=== PATIENT | male | born 1965 | race Caucasian/White ===

== ENCOUNTER 2017-10-01 07:46 | Day surgery (SDC) | payer OTHER ==
[~2017-10-01] VITALS: Ht 175.3 cm; Wt 99.3 kg
[~2017-10-01 07:46] MED LIST: ATOR1TAB21 PO; DOXE10CA PO; FISH100049 PO; LOSA100T5 PO; VITA100067 PO
[2017-10-01] MEDS ORDERED: NS 1,000 ML IV ONE (08:15)
[2017-10-01] MEDS ORDERED: LIDOCAINE 2% INJ 100 MG/5 ML SDV (FOR ANES.) As Ordered ONE (08:54)
[2017-10-01] MEDS ORDERED: PROPOFOL 200 MG/20 ML VIAL As Ordered ONE ×2 (08:54→09:09)
--- NOTE | 2017-10-01 09:31 | ROOR ---
Patient Name: Aleksandr Mcclain Procedure Date: 10/01/2017 8:50 AM Date of : 1965 Age: 52 Room: [facility] Gender: Male Note Status: Finalized Procedure: Colonoscopy Indications: Screening for colorectal malignant neoplasm Providers: Jimmy Medina MD Referring MD: CATE PADILLA MD Requesting Provider: Medicines: Monitored Anesthesia Care Complications: No immediate complications. Procedure: Pre-Anesthesia Assessment: - Prior to the procedure, a History and Physical was performed, and patient medications and allergies were reviewed. The patient is competent. The risks and benefits of the procedure and the sedation options and risks were discussed with the patient. All questions were answered and informed consent was obtained. Patient identification and proposed procedure were verified by the physician, the nurse and the anesthesiologist in the endoscopy suite. Mental Status Examination: alert and oriented. Airway Examination: normal oropharyngeal airway and neck mobility. Respiratory Examination: clear to auscultation. CV Examination: normal. Prophylactic Antibiotics: The patient does not require prophylactic antibiotics. Prior Anticoagulants: The patient has taken no previous anticoagulant or antiplatelet agents. ASA Grade Assessment: I - A normal, healthy patient. After reviewing the risks and benefits, the patient was deemed in satisfactory condition to undergo the procedure. The anesthesia plan was to use monitored anesthesia care (MAC). Immediately prior to administration of medications, the patient was re-assessed for adequacy to receive sedatives. The heart rate, respiratory rate, oxygen saturations, blood pressure, adequacy of pulmonary ventilation, and response to care were monitored throughout the procedure. The physical status of the patient was re-assessed after the procedure. The Colonoscope was introduced through the anus and advanced to the cecum, identified by appendiceal orifice and ileocecal valve. The colonoscopy was performed without difficulty. The patient tolerated the procedure well. The quality of the bowel preparation was excellent. Findings: The perianal exam findings include a skin tag. A diminutive polyp was found in the cecum. The polyp was flat. The polyp was removed with a jumbo cold forceps. Resection and retrieval were complete. Estimated blood loss was minimal. Two semi-pedunculated polyps were found in the descending colon and from 50 to 60 cm proximal to the anus. The polyps were 8 to 10 mm in size. These polyps were removed with a hot snare. Resection and retrieval were complete. Estimated blood loss was minimal. A small polyp was found in the rectum. The polyp was sessile. The polyp was removed with a jumbo cold forceps. Resection and retrieval were complete. Estimated blood loss was minimal. No additional abnormalities were found on retroflexion. Impression: - Perianal skin tag found on perianal exam. - One diminutive polyp in the cecum, removed with a jumbo cold forceps. Resected and retrieved. - Two 8 to 10 mm polyps in the descending colon and from 50 to 60 cm proximal to the anus, removed with a hot snare. Resected and retrieved. - One small polyp in the rectum, removed with a jumbo cold forceps. Resected and retrieved. Recommendation: - Discharge patient to home (ambulatory). - Resume regular diet. - Telephone my office for pathology results in 2 weeks. - Repeat colonoscopy in 3 years for surveillance. Jimmy Medina MD Jimmy Medina MD 10/01/2017 9:31:23 AM This report has been signed electronically. Number of Addenda: 0 Note Initiated On: 10/01/2017 8:50 AM Estimated Blood Loss: Estimated blood loss was minimal.
[2017-10-01 09:57] VITALS: BP 136/76
== END 2017-10-01 10:00 | disposition home or self-care (01) ==
LOC: M OPP 07:46
PROVIDERS: ATTEND Surgery
DX: Z12.11 Encounter for screening for malignant neoplasm of colon (principal); D12.0 Benign neoplasm of cecum; D12.4 Benign neoplasm of descending colon; D12.5 Benign neoplasm of sigmoid colon; K62.1 Rectal polyp; K64.4 Residual hemorrhoidal skin tags; I10 Essential (primary) hypertension; E78.5 Hyperlipidemia, unspecified; M19.90 Unspecified osteoarthritis, unspecified site; N02.8 Recurrent and persistent hematuria with other morphologic changes; F17.210 Nicotine dependence, cigarettes, uncomplicated; Z91.030 Bee allergy status; Z79.899 Other long term (current) drug therapy

== ENCOUNTER → 2017-11-25 | Outpatient (REF) | payer OTHER ==
[2017-11-25 19:41] LABS: CHOLESTEROL LEVEL 175 MG/DL (<200); CHOLESTEROL RISK RATIO 3.571 (<5); HDL CHOLESTEROL 49 MG/DL (>40); LDL CHOLESTEROL 93.2 MG/DL (<100); NON-HDL-C 126 MG/DL; TRIGLYCERIDES LEVEL 164 MG/DL (<150)
== END ==
LOC: M LAB REF 17:43
DX: E78.00 Pure hypercholesterolemia, unspecified (principal)